=== PATIENT | male | born 2000 | race African-American/Black ===

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

== ENCOUNTER 2022-01-21 12:41 | Emergency (ER) | payer MEDICAID ==
[2022-01-21 14:06] LABS: SARS-CoV-2 NAA Rapid Test Not Detected (NotDetected)
== END 2022-01-21 13:37 | disposition home or self-care (01) ==
LOC: CSHERS 12:41
DX: J11.1 Influenza due to unidentified influenza virus with other respiratory manifestations (principal); Z20.822 Contact with and (suspected) exposure to COVID-19
CPT/HCPCS: 99283

== ENCOUNTER 2022-02-24 20:43 | Emergency (ER) | payer MEDICAID | END 2022-02-24 22:35 | disposition home or self-care (01) | LOC: CSHERS 20:43 | DX: R07.9 Chest pain, unspecified (principal) | CPT/HCPCS: 71045; 93005 ==

== ENCOUNTER 2022-03-04 23:56 | Emergency (ER) | payer MEDICAID | END 2022-03-05 00:44 | disposition home or self-care (01) | LOC: CSHERS 23:56 | DX: R09.1 Pleurisy (principal) | CPT/HCPCS: 93005 ==

== ENCOUNTER 2023-01-25 14:36 | Emergency (ER) | payer MEDICAID, SELFPAY ==
[2023-01-25 15:45] LABS: #Basophils 0.1 10x3/uL (0.0-0.2); #Eosinphils 0.1 10x3/uL (0.0-0.5); #Monocytes 0.8 10x3/uL (0.0-1.1); #Neutrophils 11.2 10x3/uL (1.5-8.4); %Basophils 0.6 % (0.0-2.0); %Eosinophils 0.7 % (0.0-6.0); %Lymphocytes 12.9 % (18.0-47.0); %Monocytes 5.5 % (0.0-10.0); %Neutrophils 80.1 % (40.0-75.0); Hematocrit 44.3 % (38.8-50.0); Hemoglobin 15.3 g/dL (13.5-17.5); Mean Corpuscular HGB CONC 34.5 g/dL (32.0-36.0); Mean Corpuscular Hemoglobin 28.3 pg (27.0-33.0); Mean Platelet Volume 9.9 fl (7.4-10.4); Platelet Count 325 10x3/uL (150-450); RBC Distribution Width 11.9 % (11.5-14.5)
[2023-01-25 15:45] LABS: Bilirubin Neg (Negative); Blood, Urine 10 (Negative); Clarity Clear (Clear); Glucose, Urine (Dipstick) Normal (Negative); Ketone, Urine 5 mg/dL (Negative); Leukocyte Negative (Negative); Nitrite Negative (Negative); Protein, Urine (Dipstick) 30 mg/dl (Neg-Trace); Specific Gravity, Urine 1.025 (1.005-1.030)
[2023-01-25 15:54] LABS: CAUTI Indications for Culture Pelvic or flank pain; Squamous Epithelial 0-3 HPF (0-3); WBC/HPF 0-3 HPF (0-3)
[2023-01-25] MEDS ORDERED: Famotidine/PF 20 mg/2ml Vial ONE (15:54)
[2023-01-25] MEDS ORDERED: Mag-Al Plus 1200 MG/1200 MG/120 MG/30 ML UDCUP ONE (15:54)
[2023-01-25 15:55] LABS: Bacteria/HPF 3+ HPF (None Seen); Mucous/LPF 3+ LPF (<2+)
[2023-01-25] MEDS ORDERED: Famotidine 20 MG TAB ONE (15:56)
[2023-01-25 15:58] LABS: Urine Culture Reflex No No
[2023-01-25] MEDS ORDERED: Lidocaine 2% Viscous Solution 10 ML, Aluminum & Magnesium Hydroxide 30 ML SSW SCH (16:00)
[2023-01-25 16:22] LABS: ALT (SGPT) 51 U/L (8-55); AST (SGOT) 28 U/L (5-34); Albumin 4.6 g/dL (3.5-5.0); Alkaline Phosphatase 58 U/L (50-130); Anion Gap 14 mmol/L (10-20); BUN (Urea Nitrogen) 6 mg/dL (8.9-20.6); Bilirubin, Total 0.5 mg/dL (0.2-1.2); Calc. Creatinine Clearance 0 mL/min (70-130); Calcium 9.3 mg/dL (7.8-10.44); Carbon Dioxide 24 mmol/L (22-29); Chloride 101 mmol/L (98-107); Estimated GFR 125; Glucose 99 mg/dL (70-105); Lipase 24 U/L (8-78); Potassium 3.4 mmol/L (3.5-5.1); Protein, Total 7.6 g/dL (6.0-8.3); Sodium 136 mmol/L (136-145)
== END 2023-01-25 17:30 | disposition home or self-care (01) ==
LOC: CSHERS 14:36
DX: N39.0 Urinary tract infection, site not specified (principal)
CPT/HCPCS: 36415; 80053; 81001; 83690; 85025; 99284; S0028